=== PATIENT | female | born 1960 | race Hispanic/Latino ===

== ENCOUNTER 2018-07-25 05:43 | Emergency (ER) | payer BC ==
[~2018-07-25] VITALS: Ht 157.5 cm; Wt 58.2 kg
[~2018-07-25 05:43] MED LIST: PREMARIN0.625 M1 VA
[2018-07-25] MEDS ORDERED: METOPROL TAR25 MG PO (06:08)
[2018-07-25] MEDS ORDERED: PRAVACHOL20 MG PO (06:09)
[2018-07-25 06:20] LABS: HEMATOCRIT 41.2 % (37.0-47.0); HEMOGLOBIN 13.7 g/dl (12.0-16.0); IMMATURE GRANULOCYTES 0.3 % (0.0-5.0); MEAN CELL VOLUME 82.7 fL CALC (80.0-100.0); MEAN CORPUSCULAR HGB 27.5 pG CALC (26.0-32.0); MEAN CORPUSCULAR HGB CONC 33.3 g/L CALC (32.0-36.0); NEUT# 3.62 thou/uL (2.00-7.15); RED BLOOD COUNT 4.98 mill/uL (4.20-5.60)
[2018-07-25 06:22] LABS: URINE BILIRUBIN - DIPSTICK NEGATIVE (NEGATIVE); URINE BLOOD DIPSTICK SMALL (NEGATIVE); URINE COLOR YELLOW; URINE GLUCOSE - DIPSTICK NEGATIVE (NEGATIVE); URINE KETONE NEGATIVE (NEGATIVE); URINE LEUK ESTERASE NEGATIVE (NEGATIVE); URINE NITRITE - DIPSTICK NEGATIVE (Negative); URINE PH 7.5 (4.5-8.0); URINE PROTEIN - DIPSTICK NEGATIVE (NEG-TRACE); URINE UROBILINOGEN - DIPSTICK 0.2 E.U./dL (0.2)
[2018-07-25 06:23] LABS: URINE CLARITY CLEAR
[2018-07-25 06:27] LABS: ALBUMIN 4.8 g/dL (3.2-5.0); ALKALINE PHOSPHATASE 85 u/l (38-126); ANION GAP 18 (6-22 (CALC)); BILIRUBIN, TOTAL 0.3 mg/dL (0.0-1.4); BUN 12 mg/dL (7-17); BUN/CREATININE RATIO 19 (12-20 (CALC)); CARBON DIOXIDE 23 mmol/l (22-30); CHLORIDE 107 mmol/l (95-108); CREATININE 0.6 mg/dL (0.5-1.0); GFR > 60 ML/MIN (>=60 (CALC)); GFR FOR AFR.AMER. > 60 ML/MIN (>=60 (CALC)); POTASSIUM 3.2 mmol/l (3.5-5.1); SGOT/AST 55 u/l (14-36); SODIUM 145 mmol/l (137-146); TOTAL PROTEIN 8.8 g/dL (6.3-8.2)
[2018-07-25 06:30] LABS: URINE SQUAMOUS EPITHELIAL CELL FEW EPI/hpf (0-FEW); URINE WBC 0-2 WBC/hpf (0-5)
[2018-07-25 06:39] LABS: MYOGLOBIN 20 ng/mL (0 - 62)
[2018-07-25] MEDS ORDERED: CIPROFLOXACN500 MG PO (06:48)
[2018-07-25 07:00] VITALS: BP 152/86
== END 2018-07-25 07:11 | disposition home or self-care (01) | DRG 305 ==
LOC: ED 05:43
PROVIDERS: Emergency Medicine
DX: I10 Essential (primary) hypertension (principal); N39.0 Urinary tract infection, site not specified; E87.6 Hypokalemia; R00.2 Palpitations; T46.5X6A Underdosing of other antihypertensive drugs, initial encounter; E78.00 Pure hypercholesterolemia, unspecified; Z91.138 Patient's unintentional underdosing of medication regimen for other reason

== ENCOUNTER 2019-01-04 07:18 | Emergency (ER) | payer BC ==
[~2019-01-04] VITALS: Ht 157.5 cm; Wt 60.0 kg
[~2019-01-04 07:18] MED LIST changes: +CIPROFLOXACN500 MG PO; +METOPROL TAR25 MG PO; +PRAVACHOL20 MG PO
[2019-01-04] MEDS ORDERED: OMEPRAZOLE10 MG PO (07:36)
[2019-01-04] MEDS ORDERED: METOPROL TAR25 MG PO (07:38)
[2019-01-04 08:15] LABS: HEMATOCRIT 37.5 % (37.0-47.0); HEMOGLOBIN 12.1 g/dl (12.0-16.0); IMMATURE GRANULOCYTES 0.2 % (0.0-5.0); MEAN CELL VOLUME 80.8 fL CALC (80.0-100.0); MEAN CORPUSCULAR HGB 26.1 pG CALC (26.0-32.0); MEAN CORPUSCULAR HGB CONC 32.3 g/L CALC (32.0-36.0); NEUT# 2.83 thou/uL (2.00-7.15); RED BLOOD COUNT 4.64 mill/uL (4.20-5.60); RED CELL DISTRI WIDTH 16.4 % (11.5-15.5)
[2019-01-04 08:19] LABS: ALBUMIN 4.4 g/dL (3.2-5.0); ALKALINE PHOSPHATASE 78 u/l (38-126); BUN 14 mg/dL (7-17); BUN/CREATININE RATIO 22 (12-20 (CALC)); CARBON DIOXIDE 25 mmol/l (22-30); CHLORIDE 109 mmol/l (95-108); CREATININE 0.6 mg/dL (0.5-1.0); GFR > 60 ML/MIN (>=60 (CALC)); GFR FOR AFR.AMER. > 60 ML/MIN (>=60 (CALC)); SGOT/AST 22 u/l (14-36); SODIUM 142 mmol/l (137-146); TOTAL PROTEIN 7.9 g/dL (6.3-8.2)
[2019-01-04 08:22] LABS: ANION GAP 12 (6-22 (CALC)); BILIRUBIN, TOTAL 0.5 mg/dL (0.0-1.4)
[2019-01-04] MEDS ORDERED: FLEXERIL PO (09:25)
[2019-01-04] MEDS ORDERED: TORADOL PO (09:25)
[2019-01-04 09:59] VITALS: BP 151/79
== END 2019-01-04 09:59 | disposition home or self-care (01) | DRG 204 ==
LOC: ED 07:18
PROVIDERS: Emergency Medicine
DX: R06.02 Shortness of breath (principal); R51 Headache; M54.6 Pain in thoracic spine; G89.29 Other chronic pain; I10 Essential (primary) hypertension